=== PATIENT | male | born 1955 | race African-American/Black ===

== ENCOUNTER 2025-02-27 06:54 | Inpatient (IN) | payer MEDICARE, OTHER ==
[~2025-02-27] VITALS: Ht 188 cm; Wt 90.8 kg
[2025-02-27 07:11] LABS: PLATELET COUNT (AUTO) 196 K/uL (150-450); RED BLOOD CELL COUNT(AUTO) 4.28 MIL/uL (4.5-6.0); RED CELL DISTRIBUTION WIDTH 13.6 % (11.5-15.0); WHITE BLOOD COUNT (AUTO) 4.3 K/uL (4.3-11.0)
[2025-02-27] MEDS ORDERED: IOHEXOL-350 100 ML VIAL IV ONE (07:12)
[2025-02-27] MEDS ORDERED: CT SWABBABLE VALVE TRANS SET 1 EA INFUS.SET MC ONE (07:14)
[2025-02-27] MEDS ORDERED: IV NS 0.9% 250 ML IV ONE (07:16)
[2025-02-27 07:27] LABS: CALCIUM, SERUM 9.0 mg/dL (8.5-10.1); CREATININE 1.2 mg/dL (0.6-1.3); SODIUM SERUM 141 mmol/L (136-145); UREA NITROGEN, BLOOD 22 mg/dL (7-18)
[2025-02-27 07:29] LABS: ALCOHOL, BLOOD < 3 mg/dL (0-10)
[2025-02-27] MEDS ORDERED: ASPIRIN EC 81 MG TABLET.DR PO ONE (08:24)
[2025-02-27] MEDS ORDERED: CLOPIDOGREL BISULFATE 75 MG TABLET ONE (08:24)
[2025-02-27] MEDS: CLOPIDOGREL BISULFATE 75 MG TABLET PO ONE (08:24)
[2025-02-27] MEDS: ASPIRIN 81 MG TAB.CHEW PO ONE (08:24)
[2025-02-27] MEDS ORDERED: ENTE0.5T11 PO (10:40)
[2025-02-27] MEDS ORDERED: MULT-754 PO (10:40)
[2025-02-27] MEDS ORDERED: ASPI-1420 PO (10:40)
[2025-02-27] MEDS ORDERED: TAMS-12 PO (10:40)
[2025-02-27] MEDS ORDERED: EMPA1TAB9 PO (10:40)
[2025-02-27] MEDS ORDERED: PREG75CA PO (10:40)
[2025-02-27] MEDS ORDERED: ATOR80TA PO (10:40)
[2025-02-27] MEDS ORDERED: LIDO30AD10 TP (10:40)
[2025-02-27] MEDS ORDERED: LOSA50TA39 PO (10:40)
[2025-02-27 12:00] VITALS: BP 160/85; TEMP 97.9; O2SAT 99
[2025-02-27] MEDS: ENOXAPARIN SODIUM 40 MG/0.4 ML DISP.SYRIN SQ SCH (12:00)
[2025-02-27] MEDS: BLOOD SUGAR DIAGNOSTIC 1 EACH STRIP IN SCH ×3 (12:00→23:30)
[2025-02-27 12:10] LABS: PLATELET COUNT (AUTO) 186 K/uL (150-450); RED BLOOD CELL COUNT(AUTO) 4.27 MIL/uL (4.5-6.0); RED CELL DISTRIBUTION WIDTH 13.1 % (11.5-15.0); WHITE BLOOD COUNT (AUTO) 3.6 K/uL (4.3-11.0)
[2025-02-27 12:15] LABS: CALCIUM, SERUM 8.6 mg/dL (8.5-10.1); CREATININE 1.0 mg/dL (0.6-1.3); SODIUM SERUM 141.0 mmol/L (136-145); UREA NITROGEN, BLOOD 19.0 mg/dL (7-18)
[2025-02-27 12:18] LABS: INR 1.08 (0.91-1.10)
[2025-02-27 12:21] LABS: ASPARTATE AMINOTRANSFERASE 13.0 U/L (15-37); TOTAL PROTEIN, SERUM 6.9 g/dL (6.4-8.2)
[2025-02-27 12:28] LABS: LDL 51.0 mg/dL (0-99)
[2025-02-27 12:45] LABS: ERYTHROCYTE SEDIMENTATION RATE 9 MM/HR (0-20)
[2025-02-27 16:00] VITALS: BP 138/75; TEMP 97.9; O2SAT 98
[2025-02-27] MEDS: POLYVINYL ALCOHOL 15 ML BOTTLE EACHEYE PRN (18:27)
[2025-02-27 21:00] VITALS: BP 153/87; TEMP 97.2; O2SAT 98
[2025-02-27] MEDS ORDERED: DEXTROSE 50%-WATER 50 ML DISP.SYRIN IV PRN (23:00)
[2025-02-27] MEDS: INSULIN REGULAR, HUMAN 100 UNIT/ML 3 ML VIAL SQ PRN (23:34)
[2025-02-28 01:00] VITALS: BP 127/76; TEMP 98.2; O2SAT 98
[2025-02-28 05:00] VITALS: BP 139/74; TEMP 98.2; O2SAT 96
[2025-02-28 07:42] LABS: PLATELET COUNT (AUTO) 173 K/uL (150-450); RED BLOOD CELL COUNT(AUTO) 4.22 MIL/uL (4.5-6.0); RED CELL DISTRIBUTION WIDTH 13.4 % (11.5-15.0); WHITE BLOOD COUNT (AUTO) 3.3 K/uL (4.3-11.0)
[2025-02-28 07:46] LABS: CALCIUM, SERUM 8.3 mg/dL (8.5-10.1); CREATININE 1.0 mg/dL (0.6-1.3); INR 1.1 (0.91-1.10); SODIUM SERUM 142.0 mmol/L (136-145); UREA NITROGEN, BLOOD 15.0 mg/dL (7-18)
[2025-02-28 08:00] VITALS: BP 140/71; TEMP 97.8; O2SAT 98
[2025-02-28 08:55] LABS: LDL 50.0 mg/dL (0-99)
[2025-02-28 12:00] VITALS: BP 135/78; TEMP 97.6; O2SAT 98
== END 2025-02-28 14:15 | disposition home health service (06) | DRG 65 ==
LOC: ER 07:01 → TELE1 10:48
DX: I63.9 Cerebral infarction, unspecified (principal); B19.10 Unspecified viral hepatitis B without hepatic coma; E11.9 Type 2 diabetes mellitus without complications; I10 Essential (primary) hypertension; Z86.79 Personal history of other diseases of the circulatory system; Z98.890 Other specified postprocedural states; Z79.84 Long term (current) use of oral hypoglycemic drugs; Z79.899 Other long term (current) drug therapy; Z79.82 Long term (current) use of aspirin; R29.703 NIHSS score 3; E78.5 Hyperlipidemia, unspecified
CPT/HCPCS: 36415; 70450-TC; 70496-TC; 70498-TC; 70551-TC; 71045-TC; 80048-TC; 80053-TC; 80061-TC; 82962-TC; 84443-TC; 84484-TC; 85025-TC; 85652-TC; 85730-TC; 92526; 92611; 97110-TC; 97112-TC; 97116-TC; 97530-TC; 97535-TC; G0378; G0480; J1650; J1815; J7050; Q9967